=== PATIENT | male | born 1955 | race African-American/Black ===

== ENCOUNTER 2020-03-21 18:08 | Inpatient (IN) | payer OTHER ==
--- NOTE | 2020-03-21 19:27 | BHS.RME ---
Substance Use & Tx History - Substance Use History Alcohol Substance amount: 5-10 x 25 oz cans beer Frequency of use: Daily Cocaine- Powder Substance amount: 50 $ Frequency of use: Less than 3 times per week Substance route: Inhalation (ex: sniffing or snorting) - Last Treatment Date of last treatment: 2003 Where was last treatment: Detox Physical/Psych/Mental Status - Behavior Eye Contact: Normal - Cooperativeness Cooperativeness: Cooperative - Thinking Thought Processes: Logical Thought content: Future oriented - Physical Health Problems Is patient presently having any pain?: Yes (back , legs s/p fall a few days ago went to [facility] dx rib frx) Does patient presently have any injuries (include location): Yes (rib frx ) Does patient currently have a fever: No CIWA Nausea/Vomitin-No Nausea/No Vomiting Muscle Tremors: 1-None Visible, but [place] Anxiety: 1-Mildly Anxious Agitation: 0-Normal Activity Paroxysmal Sweats: No Perspiration Orientation: 0-Oriented Tacttile Disturbances: 1-Very Mild Itch/Numbness Auditory Disturbances: 0-None Visual Disturbances: 0-None Headache: 2-Mild CIWA-Ar Total Score: 5
--- NOTE | 2020-03-21 19:32 | HP ---
CIWA Score Nausea/Vomitin-No Nausea/No Vomiting Muscle Tremors: 1-None Visible, but [place] Anxiety: 1-Mildly Anxious Agitation: 0-Normal Activity Paroxysmal Sweats: No Perspiration Orientation: 0-Oriented Tacttile Disturbances: 1-Very Mild Itch/Numbness Auditory Disturbances: 0-None Visual Disturbances: 0-None Headache: 2-Mild CIWA-Ar Total Score: 5 - Admission Criteria OASAS Guidelines: Admission for Medically Managed Detox: Requires at least one of the followin. CIWA greater than 12 2. Seizures within the past 24 hours 3. Delirium tremens within the past 24 hours 4. Hallucinations within the past 24 hours 5. Acute intervention needed for co occurring medical disorder 6. Acute intervention needed for co occurring psychiatric disorder 7. Severe withdrawal that cannot be handled at a lower level of care (continued vomiting, continued diarrhea, abnormal vital signs) requiring intravenous medication and/or fluids 8. Admission ROS [facility] - HPI Allergies/Adverse Reactions: Allergies Allergy/AdvReac Type Severity Reaction Status Date / Time mayonnaise AdvReac Verified 03/21/20 19:24 History of Present Illness: 64 y.o. male requesting detox from alcohol use , reports relapse since April 2019 after the of his fiancee , current daily use 5-10 x 25 oz cans of beer , latest use today , current JOANNA 0.059 . Denies seizures , reports blackouts, tremors if not drinking . cocaine - weekly use . tobacco ; 1/2 ppd PSych ; denies PSHX : denies PMHX : DM , claims on Metformin Exam Limitations: Clinical Condition, Intoxication - Review of Systems Constitutional: Loss of Appetite, Night Sweats, Changes in sleep EENT: reports: Other (partial dentures) Respiratory: reports: Shortness of Breath (at times , has had for 3 months) Cardiac: reports: No Symptoms Reported GI: reports: Diarrhea, Poor Appetite : reports: No Symptoms Reported Musculoskeletal: reports: Back Pain, Joint Pain, Muscle Pain (s/p recent fall w / rib frx right -sided) Integumentary: reports: No Symptoms Reported Neuro: reports: Headache, Tremors Endocrine: reports: See HPI (diabetes on metformin) Psychiatric: reports: Orientated x3, Anxious, Depressed Patient History - Smoking Cessation Smoking history: Current every day smoker Have you smoked in the past 12 months: Yes Hx Chewing Tobacco Use: No Initiated information on smoking cessation: Yes 'Breaking Loose' booklet given: 03/21/20 Admission Physical Exam S - Physical General Appearance: Yes: Disheveled, Mild Distress HEENTM: Yes: EOMI, Hearing grossly Normal, Normocephalic, Muffled/Hoarse Voice, Other (upper dentures, poor dentition , many missing teeth) Respiratory: Yes: Lungs Clear, Normal Breath Sounds, No Respiratory Distress, No Accessory Muscle Use, Other (tenderness ribcage right lower , known rib frx) Neck: Yes: No masses,lesions,Nodules, Trachea in good position Cardiology: Yes: Regular Rhythm, Regular Rate, S1, S2, Tachycardia Abdominal: Yes: Normal Bowel Sounds, Non Tender, Soft Back: Yes: Normal Inspection, Muscle Spasm Musculoskeletal: Yes: Gait Steady, Joint Stiffness (left shoulder) Extremities: Yes: Non-Tender, Tremors, Other (decreased ROM left shoulder) Neurological: Yes: Alert, Motor Strength 5/5, Depressed Affect Integumentary: Yes: Warm, Rash (testicular) - Addiitonal Findings: ekg sinus tachycardia , septal infarct age undetermined . Pt asymptomatic , denies CP . Advised to f/up w/ PCP / cardiology . Pt verbalizes understanding and agreement. - Diagnostic (1) Alcohol use disorder Current Visit: Yes Status: Chronic (2) Cocaine abuse Current Visit: Yes Status: Chronic Inpatient Rehab Admission - Rehab Decision to Admit Inpatient rehab admission?: No
[2020-03-21] MEDS ORDERED: MAG HYDROX/AL HYDROX/SIMETH 30 ML UNIT-DOSE CUP PO PRN (19:57)
[2020-03-21] MEDS ORDERED: IBUPROFEN 400 MG TABLET (FP) PO PRN (19:57)
[2020-03-21] MEDS ORDERED: MAGNESIUM HYDROX 2400MG/30ML ORAL SUSPENSION 30 ML CUP PO PRN (19:57)
[2020-03-21] MEDS ORDERED: MENTHOL/PHENOL 1 EACH UD MM PRN (19:57)
[2020-03-21] MEDS ORDERED: BISMUTH SUBSALICYLATE 524 MG/30 ML UD PO PRN (19:57)
[2020-03-21] MEDS ORDERED: NICOTINE POLACRILEX 2 MG GUM BUC PRN (19:57)
[2020-03-21] MEDS ORDERED: ACETAMINOPHEN 325 MG TABLET (FP) PO PRN ×2 (19:57)
[2020-03-21] MEDS ORDERED: MAGNESIUM CITRATE 300 ML BOTTLE PO PRN (19:57)
[2020-03-21] MEDS ORDERED: chlordiazePOXIDE HCL 10 MG CAPSULE PO PRN (20:00)
[2020-03-21] MEDS ORDERED: guaiFENesin 200 MG/10 ML 10 ML UNIT-DOSE CUPS PO PRN (21:12)
[2020-03-21] MEDS ORDERED: METOPROLOL TARTRATE 25 MG TABLET (FP) PO ONE (21:30)
[2020-03-21 21:56] VITALS: BMI 19.8
[2020-03-21] MEDS ORDERED: TUBERCULIN PPD 5 TU/0.1ML VIAL ID ONE (22:41)
[2020-03-21] MEDS: TOLNAFTATE 1% CREAM 15 GM TUBE TP SCH (22:43)
[2020-03-21] MEDS: chlordiazePOXIDE HCL 25 MG CAPSULE PO SCH (22:44)
[2020-03-21] MEDS: THIAMINE HCL 100 MG TABLET (FP) PO SCH (22:44)
[2020-03-21] MEDS: MELATONIN 5 MG TABLETS PO PRN (22:44)
[2020-03-21] MEDS: ASPIRIN 81 MG CHEWABLE TABLETS PO SCH (22:44)
[2020-03-22] MEDS: chlordiazePOXIDE HCL 25 MG CAPSULE PO SCH ×3 (07:43→22:01)
[2020-03-22] MEDS: INSULIN SLIDING SCALE (NOVOLOG) 1 VIAL SQ SCH ×2 (07:44→16:43)
[2020-03-22] MEDS: ASPIRIN 81 MG CHEWABLE TABLETS PO SCH (10:19)
[2020-03-22] MEDS: PRENATAL VITAMINS W/ FOLIC ACID TABLET (FP) PO SCH (10:19)
[2020-03-22] MEDS: TOLNAFTATE 1% CREAM 15 GM TUBE TP SCH ×2 (10:19→22:02)
--- NOTE | 2020-03-22 10:40 | EKG ---
Test Reason : Blood Pressure : / mmHG Vent. Rate : 114 BPM Atrial Rate : 114 BPM P-R Int : 186 ms QRS Dur : 090 ms QT Int : 332 ms P-R-T Axes : 077 -28 072 degrees QTc Int : 457 ms SINUS TACHYCARDIA SEPTAL INFARCT , AGE UNDETERMINED ABNORMAL ECG NO PREVIOUS ECGS AVAILABLE Confirmed by Reyes Treviño MD ([id number]) on 03/22/2020 10:39:36 AM Referred By: Confirmed By:Reyes Treviño MD
--- NOTE | 2020-03-22 10:47 | PN ---
S CIWA - CIWA Score Nausea/Vomitin-No Nausea/No Vomiting (diarrhea) Muscle Tremors: 4-Moderate,w/Arms Extend Anxiety: 4-Mod. Anxious/Guarded Agitation: 3 Paroxysmal Sweats: 1-Minimal Palms Moist Orientation: 0-Oriented Tacttile Disturbances: 0-None Auditory Disturbances: 0-None Visual Disturbances: 0-None Headache: 0-None Present CIWA-Ar Total Score: 12 BHS Progress Note (SOAP) Subjective: Pt is a 64 y/o male admitted to detox for alcohol withdrawal sx. On librium regimen. C/o anxiety tremors diarrhea,body aches Objective: 03/22/20 10:46 Vital Signs - 24 hr 03/21/20 03/21/20 03/22/20 21:39 23:04 00:30 Temperature 96.9 F L 97.7 F Pulse Rate 114 H 114 H Respiratory 20 20 16 Rate Blood Pressure 126/70 138/70 O2 Sat by Pulse 96 Oximetry (%) 03/22/20 03/22/20 06:10 09:10 Temperature 98.2 F 98.0 F Pulse Rate 102 H 95 H Respiratory 18 16 Rate Blood Pressure 122/69 122/69 O2 Sat by Pulse 97 95 Oximetry (%) Laboratory Tests 03/22/20 06:45 POC Glucometer 111 other labs pending Alert o x 3 nad oob ambulating with steady gait Assessment: 03/22/20 10:46 withdrawal sx Plan: continue detox increase po fluids maintain safety
[2020-03-22 10:51] LABS: HEMATOCRIT 35.5 % (35.4-49); HEMOGLOBIN 11.6 GM/dL (11.7-16.9); MCH 27.3 pg (25.7-33.7); MCHC 32.6 g/dl (32.0-35.9); MEAN CELL VOLUME 83.7 fl (80-96); MEAN PLT VOLUME 8.5 fl (7.5-11.1); PLATELET COUNT 322 K/MM3 (134-434); RBC 4.24 M/mm3 (4.00-5.60); RDW 18.1 % (11.9-15.9); WHITE BLOOD COUNT 3.4 K/mm3 (4.0-10.0)
[2020-03-22 10:59] LABS: ALBUMIN 2.8 g/dl (3.4-5.0); BILIRUBIN,TOTAL 0.5 mg/dL (0.2-1); BLOOD UREA NITROGEN 11.4 mg/dL (7-18); CALCIUM 8.8 mg/dL (8.5-10.1); POTASSIUM 4.3 mmol/L (3.5-5.1); TOT PROT 6.3 g/dl (6.4-8.2)
[2020-03-22 11:01] LABS: CREATININE 0.8 mg/dL (0.55-1.3)
[2020-03-22] MEDS: MELATONIN 5 MG TABLETS PO PRN (22:01)
[2020-03-22] MEDS: THIAMINE HCL 100 MG TABLET (FP) PO SCH (22:01)
[2020-03-22 22:37] LABS: URINE APPEARANCE CLEAR; URINE BILIRUBIN NEGATIVE (NEGATIVE); URINE COLOR YELLOW; URINE GLUCOSE (UA) NEGATIVE (NEGATIVE); URINE KETONE NEGATIVE (NEGATIVE); URINE LEUK ESTERASE NEGATIVE (NEGATIVE); URINE NITRITE NEGATIVE (NEGATIVE); URINE PROTEIN NEGATIVE (NEGATIVE); URINE UROBILINOGEN 0.2 mg/dL (0.2-1.0)
[2020-03-23] MEDS: chlordiazePOXIDE 5 MG CAPSULE PO SCH ×3 (05:58→22:25)
[2020-03-23] MEDS: INSULIN SLIDING SCALE (NOVOLOG) 1 VIAL SQ SCH ×2 (06:02→18:36)
--- NOTE | 2020-03-23 09:37 | PN ---
[facility] CIWA - CIWA Score Nausea/Vomitin-No Nausea/No Vomiting Muscle Tremors: 3 Anxiety: 4-Mod. Anxious/Guarded Agitation: 3 Paroxysmal Sweats: 1-Minimal Palms Moist Orientation: 0-Oriented Tacttile Disturbances: 0-None Auditory Disturbances: 0-None Visual Disturbances: 0-None Headache: 0-None Present CIWA-Ar Total Score: 11 BHS Progress Note (SOAP) Subjective: c/o anxiety slight tremors fatigue "starting to feel slight sob because i have emphysema. My doctor has me on the aguero pump". Pt requesting to restart on "pump". Pt reports he has a PCP located in [facility] and does not remember her name("might be on my insurance card". "My pharmacy where i got my pump is right across from my doctor in [facility]"). Objective: 03/23/20 10:09 Vital Signs - 8 hr 03/23/20 03/23/20 03:30 06:28 Temperature 97.7 F Pulse Rate 89 Respiratory 18 18 Rate Blood Pressure 118/70 O2 Sat by Pulse 95 Oximetry (%) Laboratory Tests 03/22/20 03/22/20 03/22/20 06:45 07:50 07:50 WBC 3.4 L RBC 4.24 Hgb 11.6 L Hct 35.5 MCV 83.7 MCH 27.3 MCHC 32.6 RDW 18.1 H Plt Count 322 MPV 8.5 Sodium Potassium Chloride Carbon Dioxide Anion Gap BUN Creatinine Est GFR (CKD-EPI)AfAm Est GFR (CKD-EPI)NonAf POC Glucometer 111 Random Glucose Calcium Total Bilirubin AST ALT Alkaline Phosphatase Total Protein Albumin Urine Color Urine Appearance Urine pH Ur Specific [place] Urine Protein Urine Glucose (UA) Urine Ketones Urine Blood Urine Nitrite Urine Bilirubin Urine Urobilinogen Ur Leukocyte Esterase Syphilis Serology Non-reactive 03/22/20 03/22/20 03/22/20 07:50 16:42 17:20 WBC RBC Hgb Hct MCV MCH MCHC RDW Plt Count MPV Sodium 142 Potassium 4.3 Chloride 108 H Carbon Dioxide 28 Anion Gap 6 L BUN 11.4 Creatinine 0.8 Est GFR (CKD-EPI)AfAm 107.89 Est GFR (CKD-EPI)NonAf 93.09 POC Glucometer 117 Random Glucose 115 H Calcium 8.8 Total Bilirubin 0.5 AST 34 ALT 32 Alkaline Phosphatase 77 Total Protein 6.3 L Albumin 2.8 L Urine Color Yellow Urine Appearance Clear Urine pH 7.0 Ur Specific [place] 1.021 Urine Protein Negative Urine Glucose (UA) Negative Urine Ketones Negative Urine Blood Negative Urine Nitrite Negative Urine Bilirubin Negative Urine Urobilinogen 0.2 Ur Leukocyte Esterase Negative Syphilis Serology 03/23/20 05:58 WBC RBC Hgb Hct MCV MCH MCHC RDW Plt Count MPV Sodium Potassium Chloride Carbon Dioxide Anion Gap BUN Creatinine Est GFR (CKD-EPI)AfAm Est GFR (CKD-EPI)NonAf POC Glucometer 114 Random Glucose Calcium Total Bilirubin AST ALT Alkaline Phosphatase Total Protein Albumin Urine Color Urine Appearance Urine pH Ur Specific [place] Urine Protein Urine Glucose (UA) Urine Ketones Urine Blood Urine Nitrite Urine Bilirubin Urine Urobilinogen Ur Leukocyte Esterase Syphilis Serology covid-19 pending alert o x 3 oob ambulating with steady gait lungs:no wheeze or rhonchi Assessment: 03/23/20 10:11 withdrawal sx pt hx Emphysema Plan: cont detox increase po fluids maintain safety D/w pt will order Albuterol inhaler. pt agreeable with poc
[2020-03-23] MEDS: ASPIRIN 81 MG CHEWABLE TABLETS PO SCH (09:59)
[2020-03-23] MEDS: PRENATAL VITAMINS W/ FOLIC ACID TABLET (FP) PO SCH (09:59)
[2020-03-23] MEDS: TOLNAFTATE 1% CREAM 15 GM TUBE TP SCH ×2 (10:00→22:24)
[2020-03-23] MEDS: ALBUTEROL SO4 HFA INHALER IH PRN ×3 (10:26→22:23)
[2020-03-23] MEDS: hydrOXYzine PAMOATE 25 MG CAPSULE (FP) PO PRN (22:24)
[2020-03-23] MEDS: MELATONIN 5 MG TABLETS PO PRN (22:24)
[2020-03-23] MEDS: THIAMINE HCL 100 MG TABLET (FP) PO SCH (22:24)
[2020-03-24] MEDS ORDERED: chlordiazePOXIDE HCL 10 MG CAPSULE PO PRN
[2020-03-24] MEDS: chlordiazePOXIDE HCL 10 MG CAPSULE PO SCH ×3 (05:45→22:05)
[2020-03-24] MEDS: hydrOXYzine PAMOATE 25 MG CAPSULE (FP) PO PRN ×2 (06:41→22:05)
[2020-03-24] MEDS: ALBUTEROL SO4 HFA INHALER IH PRN ×2 (06:41→15:53)
[2020-03-24] MEDS: INSULIN SLIDING SCALE (NOVOLOG) 1 VIAL SQ SCH ×2 (06:42→18:55)
[2020-03-24] MEDS: metFORMIN HCL 500 MG TABLET (FP) PO SCH ×2 (06:44→17:04)
[2020-03-24] MEDS: TOLNAFTATE 1% CREAM 15 GM TUBE TP SCH ×2 (10:08→22:47)
[2020-03-24] MEDS: ASPIRIN 81 MG CHEWABLE TABLETS PO SCH (10:08)
[2020-03-24] MEDS: PRENATAL VITAMINS W/ FOLIC ACID TABLET (FP) PO SCH (10:08)
--- NOTE | 2020-03-24 13:51 | PN ---
S CIWA - CIWA Score Nausea/Vomitin-No Nausea/No Vomiting Muscle Tremors: 2 Anxiety: 4-Mod. Anxious/Guarded Agitation: 0-Normal Activity Paroxysmal Sweats: 1-Minimal Palms Moist Orientation: 0-Oriented Tacttile Disturbances: 0-None Auditory Disturbances: 0-None Visual Disturbances: 0-None Headache: 0-None Present CIWA-Ar Total Score: 7 BHS Progress Note (SOAP) Subjective: c/o Fatigue sweats slight tremor intermittent sleep Objective: 03/24/20 13:50 Vital Signs 03/24/20 03/24/20 03/24/20 06:22 07:25 09:00 Temperature 97.8 F 97.8 F Pulse Rate 91 H 109 H Respiratory 18 18 Rate Blood Pressure 118/62 128/80 O2 Sat by Pulse 90 L 95 Oximetry (%) Laboratory Tests 03/22/20 03/22/20 03/22/20 06:45 07:50 07:50 WBC 3.4 L RBC 4.24 Hgb 11.6 L Hct 35.5 MCV 83.7 MCH 27.3 MCHC 32.6 RDW 18.1 H Plt Count 322 MPV 8.5 Sodium Potassium Chloride Carbon Dioxide Anion Gap BUN Creatinine Est GFR (CKD-EPI)AfAm Est GFR (CKD-EPI)NonAf POC Glucometer 111 Random Glucose Calcium Total Bilirubin AST ALT Alkaline Phosphatase Total Protein Albumin Urine Color Urine Appearance Urine pH Ur Specific [place] Urine Protein Urine Glucose (UA) Urine Ketones Urine Blood Urine Nitrite Urine Bilirubin Urine Urobilinogen Ur Leukocyte Esterase Syphilis Serology Non-reactive 03/22/20 03/22/20 03/22/20 07:50 16:42 17:20 WBC RBC Hgb Hct MCV MCH MCHC RDW Plt Count MPV Sodium 142 Potassium 4.3 Chloride 108 H Carbon Dioxide 28 Anion Gap 6 L BUN 11.4 Creatinine 0.8 Est GFR (CKD-EPI)AfAm 107.89 Est GFR (CKD-EPI)NonAf 93.09 POC Glucometer 117 Random Glucose 115 H Calcium 8.8 Total Bilirubin 0.5 AST 34 ALT 32 Alkaline Phosphatase 77 Total Protein 6.3 L Albumin 2.8 L Urine Color Yellow Urine Appearance Clear Urine pH 7.0 Ur Specific [place] 1.021 Urine Protein Negative Urine Glucose (UA) Negative Urine Ketones Negative Urine Blood Negative Urine Nitrite Negative Urine Bilirubin Negative Urine Urobilinogen 0.2 Ur Leukocyte Esterase Negative Syphilis Serology 03/23/20 03/23/20 03/24/20 05:58 16:56 05:44 WBC RBC Hgb Hct MCV MCH MCHC RDW Plt Count MPV Sodium Potassium Chloride Carbon Dioxide Anion Gap BUN Creatinine Est GFR (CKD-EPI)AfAm Est GFR (CKD-EPI)NonAf POC Glucometer 114 189 112 Random Glucose Calcium Total Bilirubin AST ALT Alkaline Phosphatase Total Protein Albumin Urine Color Urine Appearance Urine pH Ur Specific [place] Urine Protein Urine Glucose (UA) Urine Ketones Urine Blood Urine Nitrite Urine Bilirubin Urine Urobilinogen Ur Leukocyte Esterase Syphilis Serology Assessment: 03/24/20 13:51 withdrawal sx Plan: cont detox increase po fluids maintain safety
[2020-03-24] MEDS: THIAMINE HCL 100 MG TABLET (FP) PO SCH (22:05)
[2020-03-24] MEDS: MELATONIN 5 MG TABLETS PO PRN (22:05)
[2020-03-25] MEDS ORDERED: chlordiazePOXIDE HCL 10 MG CAPSULE PO ONE (05:00)
[2020-03-25] MEDS: INSULIN SLIDING SCALE (NOVOLOG) 1 VIAL SQ SCH ×2 (06:29→16:29)
[2020-03-25] MEDS: metFORMIN HCL 500 MG TABLET (FP) PO SCH ×2 (06:29→16:28)
[2020-03-25] MEDS: TOLNAFTATE 1% CREAM 15 GM TUBE TP SCH ×2 (10:08→21:08)
[2020-03-25] MEDS: hydrOXYzine PAMOATE 25 MG CAPSULE (FP) PO PRN (10:08)
[2020-03-25] MEDS: PRENATAL VITAMINS W/ FOLIC ACID TABLET (FP) PO SCH (10:08)
[2020-03-25] MEDS: ASPIRIN 81 MG CHEWABLE TABLETS PO SCH (10:08)
[2020-03-25] MEDS: ALBUTEROL SO4 HFA INHALER IH PRN ×2 (16:28→21:09)
--- NOTE | 2020-03-25 17:08 | PN ---
S CIWA - CIWA Score Nausea/Vomitin-No Nausea/No Vomiting Muscle Tremors: None Anxiety: 2 Agitation: 0-Normal Activity Paroxysmal Sweats: No Perspiration Orientation: 0-Oriented Tacttile Disturbances: 0-None Auditory Disturbances: 0-None Visual Disturbances: 1-Very Mild Sensitivity Headache: 0-None Present CIWA-Ar Total Score: 3 BHS Progress Note (SOAP) Subjective: Fatigue. Patient denies other withdrawal / detox symptoms at this time. Objective: Patient A & O X 3; In No Acute Distress. 03/25/20 17:04 Vital Signs Temperature 97.8 F 03/25/20 16:29 Pulse Rate 111 H 03/25/20 16:29 Respiratory Rate 20 03/25/20 16:29 Blood Pressure 113/59 L 03/25/20 16:29 O2 Sat by Pulse Oximetry (%) 95 03/25/20 12:58 Laboratory Tests 03/21/20 03/22/20 03/22/20 21:30 06:45 07:50 WBC RBC Hgb Hct MCV MCH MCHC RDW Plt Count MPV Sodium Potassium Chloride Carbon Dioxide Anion Gap BUN Creatinine Est GFR (CKD-EPI)AfAm Est GFR (CKD-EPI)NonAf POC Glucometer 111 Random Glucose Calcium Total Bilirubin AST ALT Alkaline Phosphatase Total Protein Albumin Urine Color Urine Appearance Urine pH Ur Specific [place] Urine Protein Urine Glucose (UA) Urine Ketones Urine Blood Urine Nitrite Urine Bilirubin Urine Urobilinogen Ur Leukocyte Esterase Syphilis Serology Non-reactive COVID-19 (CHANEL) Not detected 03/22/20 03/22/20 03/22/20 07:50 07:50 16:42 WBC 3.4 L RBC 4.24 Hgb 11.6 L Hct 35.5 MCV 83.7 MCH 27.3 MCHC 32.6 RDW 18.1 H Plt Count 322 MPV 8.5 Sodium 142 Potassium 4.3 Chloride 108 H Carbon Dioxide 28 Anion Gap 6 L BUN 11.4 Creatinine 0.8 Est GFR (CKD-EPI)AfAm 107.89 Est GFR (CKD-EPI)NonAf 93.09 POC Glucometer 117 Random Glucose 115 H Calcium 8.8 Total Bilirubin 0.5 AST 34 ALT 32 Alkaline Phosphatase 77 Total Protein 6.3 L Albumin 2.8 L Urine Color Urine Appearance Urine pH Ur Specific [place] Urine Protein Urine Glucose (UA) Urine Ketones Urine Blood Urine Nitrite Urine Bilirubin Urine Urobilinogen Ur Leukocyte Esterase Syphilis Serology COVID-19 (CHANEL) 03/22/20 03/23/20 03/23/20 17:20 05:58 16:56 WBC RBC Hgb Hct MCV MCH MCHC RDW Plt Count MPV Sodium Potassium Chloride Carbon Dioxide Anion Gap BUN Creatinine Est GFR (CKD-EPI)AfAm Est GFR (CKD-EPI)NonAf POC Glucometer 114 189 Random Glucose Calcium Total Bilirubin AST ALT Alkaline Phosphatase Total Protein Albumin Urine Color Yellow Urine Appearance Clear Urine pH 7.0 Ur Specific [place] 1.021 Urine Protein Negative Urine Glucose (UA) Negative Urine Ketones Negative Urine Blood Negative Urine Nitrite Negative Urine Bilirubin Negative Urine Urobilinogen 0.2 Ur Leukocyte Esterase Negative Syphilis Serology COVID-19 (CHANEL) 03/24/20 03/24/20 03/25/20 05:44 17:03 06:28 WBC RBC Hgb Hct MCV MCH MCHC RDW Plt Count MPV Sodium Potassium Chloride Carbon Dioxide Anion Gap BUN Creatinine Est GFR (CKD-EPI)AfAm Est GFR (CKD-EPI)NonAf POC Glucometer 112 157 93 Random Glucose Calcium Total Bilirubin AST ALT Alkaline Phosphatase Total Protein Albumin Urine Color Urine Appearance Urine pH Ur Specific [place] Urine Protein Urine Glucose (UA) Urine Ketones Urine Blood Urine Nitrite Urine Bilirubin Urine Urobilinogen Ur Leukocyte Esterase Syphilis Serology COVID-19 (CHANEL) 03/25/20 16:26 WBC RBC Hgb Hct MCV MCH MCHC RDW Plt Count MPV Sodium Potassium Chloride Carbon Dioxide Anion Gap BUN Creatinine Est GFR (CKD-EPI)AfAm Est GFR (CKD-EPI)NonAf POC Glucometer 85 Random Glucose Calcium Total Bilirubin AST ALT Alkaline Phosphatase Total Protein Albumin Urine Color Urine Appearance Urine pH Ur Specific [place] Urine Protein Urine Glucose (UA) Urine Ketones Urine Blood Urine Nitrite Urine Bilirubin Urine Urobilinogen Ur Leukocyte Esterase Syphilis Serology COVID-19 (CHANEL) Labs Results Noted. Assessment: 03/25/20 17:05 WITHDRAWAL SYMPTOMS. LEUKOPENIA. Plan: Patient remained on Detox Unit today so that he would be Discharged tomorrow AM to be taken to Rehab Program.
[2020-03-25] MEDS: MELATONIN 5 MG TABLETS PO PRN (21:07)
[2020-03-25] MEDS: THIAMINE HCL 100 MG TABLET (FP) PO SCH (21:07)
[2020-03-26] MEDS: metFORMIN HCL 500 MG TABLET (FP) PO SCH (06:36)
[2020-03-26] MEDS: INSULIN SLIDING SCALE (NOVOLOG) 1 VIAL SQ SCH (06:36)
[2020-03-26] MEDS: TOLNAFTATE 1% CREAM 15 GM TUBE TP SCH (09:24)
[2020-03-26] MEDS: ASPIRIN 81 MG CHEWABLE TABLETS PO SCH (09:24)
[2020-03-26] MEDS: PRENATAL VITAMINS W/ FOLIC ACID TABLET (FP) PO SCH (09:24)
[2020-03-26] MEDS: ALBUTEROL SO4 HFA INHALER IH PRN (09:25)
[2020-03-26 09:58] VITALS: BP 101/65; PULSE 98; TEMP 97.7
--- NOTE | 2020-03-26 10:25 | PN ---
S CIWA - CIWA Score Nausea/Vomitin-No Nausea/No Vomiting Muscle Tremors: None Anxiety: 1-Mildly Anxious Agitation: 1-Slight > Activity Paroxysmal Sweats: No Perspiration Orientation: 0-Oriented Tacttile Disturbances: 0-None Auditory Disturbances: 1-Very Mild Visual Disturbances: 0-None Headache: 0-None Present CIWA-Ar Total Score: 3 BHS Progress Note (SOAP) Subjective: Complains of mild anxiety. Objective: 03/26/20 10:21 Vital Signs 03/26/20 03/26/20 03/26/20 03:30 06:29 09:06 Temperature 97.7 F 97.7 F Pulse Rate 106 H 98 H Respiratory 16 16 18 Rate Blood Pressure 121/71 101/65 Laboratory Last Values WBC 3.4 K/mm3 (4.0-10.0) L 03/22/20 07:50 RBC 4.24 M/mm3 (4.00-5.60) 03/22/20 07:50 Hgb 11.6 GM/dL (11.7-16.9) L 03/22/20 07:50 Hct 35.5 % (35.4-49) 03/22/20 07:50 MCV 83.7 fl (80-96) 03/22/20 07:50 MCH 27.3 pg (25.7-33.7) 03/22/20 07:50 MCHC 32.6 g/dl (32.0-35.9) 03/22/20 07:50 RDW 18.1 % (11.9-15.9) H 03/22/20 07:50 Plt Count 322 K/MM3 (134-434) 03/22/20 07:50 MPV 8.5 fl (7.5-11.1) 03/22/20 07:50 Sodium 142 mmol/L (136-145) 03/22/20 07:50 Potassium 4.3 mmol/L (3.5-5.1) 03/22/20 07:50 Chloride 108 mmol/L (98-107) H 03/22/20 07:50 Carbon Dioxide 28 mmol/L (21-32) 03/22/20 07:50 Anion Gap 6 MMOL/L (8-16) L 03/22/20 07:50 BUN 11.4 mg/dL (7-18) 03/22/20 07:50 Creatinine 0.8 mg/dL (0.55-1.3) 03/22/20 07:50 Est GFR (CKD-EPI)AfAm 107.89 03/22/20 07:50 Est GFR (CKD-EPI)NonAf 93.09 03/22/20 07:50 POC Glucometer 99 UNITS (80-120) 03/26/20 06:36 Random Glucose 115 mg/dL (74-106) H 03/22/20 07:50 Calcium 8.8 mg/dL (8.5-10.1) 03/22/20 07:50 Total Bilirubin 0.5 mg/dL (0.2-1) 03/22/20 07:50 AST 34 U/L (15-37) 03/22/20 07:50 ALT 32 U/L (13-61) 03/22/20 07:50 Alkaline Phosphatase 77 U/L (45-117) 03/22/20 07:50 Total Protein 6.3 g/dl (6.4-8.2) L 03/22/20 07:50 Albumin 2.8 g/dl (3.4-5.0) L 03/22/20 07:50 Urine Color Yellow 03/22/20 17:20 Urine Appearance Clear 03/22/20 17:20 Urine pH 7.0 (5.0-8.0) 03/22/20 17:20 Ur Specific [place] 1.021 (1.010-1.035) 03/22/20 17:20 Urine Protein Negative (NEGATIVE) 03/22/20 17:20 Urine Glucose (UA) Negative (NEGATIVE) 03/22/20 17:20 Urine Ketones Negative (NEGATIVE) 03/22/20 17:20 Urine Blood Negative (NEGATIVE) 03/22/20 17:20 Urine Nitrite Negative (NEGATIVE) 03/22/20 17:20 Urine Bilirubin Negative (NEGATIVE) 03/22/20 17:20 Urine Urobilinogen 0.2 mg/dL (0.2-1.0) 03/22/20 17:20 Ur Leukocyte Esterase Negative (NEGATIVE) 03/22/20 17:20 Syphilis Serology Non-reactive (NONREACTIVE) 03/22/20 07:50 COVID-19 (CHANEL) Not detected 03/21/20 21:30 Labs reviewed. Assessment: 03/26/20 10:22 Alert and oriented x 3, in no acute respiratory distress Full ROM, ambulatory on the unit without assistance. For discharge today. Plan: Discharge today.
--- NOTE | 2020-03-26 11:20 | DS ---
[facility] Detox Discharge Summary Admission Date: 03/21/20 Discharge Date: 03/26/20 - History Present History: Alcohol Dependence, Cocaine Dependence Pertinent Past History: History DM, Emphysema, alcohol, nicotine and cocaine use disorder. - Physical Exam Results Vital Signs: Vital Signs Temperature 97.7 F 03/26/20 09:06 Pulse Rate 98 H 03/26/20 09:06 Respiratory Rate 18 03/26/20 09:06 Blood Pressure 101/65 03/26/20 09:06 O2 Sat by Pulse Oximetry (%) 95 03/25/20 20:40 Pertinent Admission Physical Exam Findings: Mild withdrawal symptoms. - Treatment Hospital Course: Detox Protocol Followed, Detoxed Safely, Responded well, Discharged Condition Good - Medication Discharge Medications: Ambulatory Orders Albuterol Sulfate Inhaler - [Ventolin Hfa Inhaler -] 2 puff IH Q4H PRN #1 inhaler 03/25/20 Metformin HCl [Glucophage] 500 mg PO BID 30 Days #60 tablet 03/25/20 - Diagnosis (1) Personal history of emphysema Status: Chronic (2) Alcohol use disorder Status: Acute (3) Cocaine abuse Status: Chronic - AMA Did Patient Leave Against Medical Advice: No
== END 2020-03-26 09:25 | disposition home or self-care (01) | DRG 897 ==
LOC: YASAS 18:08 → Y5N DETOX 21:25
PROVIDERS: ADMIT Allergy & Immunology; ATTEND Allergy & Immunology
PROC: HZ2ZZZZ Detoxification Services for Substance Abuse Treatment (ICD-10-PCS; principal; 2020-03-21)
DX: F10.230 Alcohol dependence with withdrawal, uncomplicated (principal); F14.10 Cocaine abuse, uncomplicated; F17.210 Nicotine dependence, cigarettes, uncomplicated; J43.9 Emphysema, unspecified; D72.819 Decreased white blood cell count, unspecified; E11.9 Type 2 diabetes mellitus without complications; Z79.84 Long term (current) use of oral hypoglycemic drugs; I25.2 Old myocardial infarction; Z91.018 Allergy to other foods
CPT/HCPCS: 36415; 80053; 81003; 82962; 85027; 86780; 93005; 93010; U0003